=== PATIENT | female | born 1975 | race Caucasian/White ===

== ENCOUNTER 2016-12-31 12:04 | Emergency (ER) | payer OTHER ==
[~2016-12-31] VITALS: Ht 162.6 cm; Wt 122.2 kg
[~2016-12-31 12:04] MED LIST: ALBUTEROL SULF8.5 GM IH; ALLEGRA; ALLEGRA30 MG PO; AMPICILLIN TRI500 MG PO; ATIVAN1 MG PO; BENAZEPRIL HCL20 MG PO; BUTALB-APAP-CA1 EACH; CELEXA10 M1 PO; CELEXA20 MG PO; CHLORTHALIDONE25 MG PO; CIPRO500 MG PO; DILAUDID2 MG PO; DILAUDID4 MG PO; DIOVAN320 MG; ESCITALOPRAM OX10 MG; FEXOFENADINE HC30 MG PO; FLOMAX0.4 MG PO; GUANFACINE HCL1 MG PO; HYDROCHLOROTHIA25 MG; HYDROCHLOROTHIAZIDE; INTUNIV2 MG PO; ISOPTIN SR240 M1 PO; ISOPTIN SR240 MG PO; KEFLEX500 MG PO; LEVAQUIN500 MG PO; LORAZEPAM1 MG; LORAZEPAM1 MG PO; LORTAB 5-325 M1 EACH PO; METHYLPHENIDATE10 M1; NAPROSYN500 MG PO; NORCO 5/3251 TABLET PO; PERCOCET 5/31 TABLET PO; POTASSIUM CHLO10 ME4; POTASSIUM CHLORIDE; POTASSIUM CITR10 MEQ PO; TORADOL10 MG PO; TRAMADOL HCL50 MG PO; VITAMIN D1000 UNIT PO; ZOFRAN ODT4 MG PO; ZOFRAN ODT8 MG PO; ZOFRAN4 MG PO; ZOLOFT; ZYRTEC10 M3 PO
[2016-12-31 12:29] LABS: ADD MIUA? YES; BILIRUBIN NEGATIVE; BLOOD SMALL; COLOR STRAW ((YELLOW)); GLUCOSE (STRIP) NEGATIVE; KETONES NEGATIVE; LEUKOCYTES MODERATE; NITRITE NEGATIVE; PROTEIN (STRIP) 100; SPECIFIC GRAVITY 1.008 (1.000-1.030); UROBILINOGEN 0.2 MG/DL (0.2-1.0)
[2016-12-31 12:37] LABS: BACTERIA NONE SEEN /HPF; EPITHELIAL CELLS 1+ /HPF; MUCUS TRACE /LPF; RED BLOOD CELLS 0-5 /HPF (0-5); UCUL ADDED? NO; WHITE BLOOD CELLS 15-20 /HPF (0-5)
[2016-12-31 12:53] LABS: MCH 27.7 PG (29.0-34.0); MCHC 33.1 G/DL (30.0-36.0); MCV 83.9 FL (83-99); MEAN PLAT.VOLUME 9.9 uM^3 (9.5-12.4); PLATELET COUNT 321 K/uL (156-360); RBC DIS.WIDTH-CV 14.3 % (11.8-14.6); RED BLOOD COUNT 4.65 M/uL (3.80-5.20)
[2016-12-31 13:00] LABS: CHLORIDE 102 mEq/L (99-109); POTASSIUM 3.3 mEq/L (3.7-5.4); SODIUM 138 mEq/L (136-147)
[2016-12-31 13:02] LABS: GLUCOSE 96 mg/dL (70-99)
[2016-12-31 13:04] LABS: ANION GAP 12 MEQ/L (2-14)
[2016-12-31 13:06] LABS: GFR ESTIMATE (CALCULATED) > 59 mL/min/
[2016-12-31 13:07] LABS: UREA NITROGEN (BUN) 18 mg/dL (9-23)
[2016-12-31 13:17] LABS: QUANTITATIVE HCG < 4.0 MIU/ML
[2016-12-31 14:18] LABS: TOTAL BILIRUBIN 0.3 mg/dL (0.0-1.0)
[2016-12-31 14:19] LABS: ALKALINE PHOSPHATASE 81 IU/L (3-129)
[2016-12-31 14:21] LABS: DIRECT BILIRUBIN 0.1 mg/dL (0.0-0.3)
[2016-12-31 14:22] LABS: LIPASE 27 U/L (1.0-51.0)
[2016-12-31] MEDS ORDERED: ZOFRAN ODT4 MG PO (15:06)
[2016-12-31] MEDS ORDERED: BENTYL20 MG PO (15:06)
[2016-12-31] MEDS ORDERED: ULTRACET1 TABLET PO (15:07)
[2016-12-31] MEDS ORDERED: MOTRIN600 MG PO (15:07)
[2016-12-31 15:29] VITALS: BP 136/91
== END 2016-12-31 15:30 | disposition home or self-care (01) ==
LOC: EME 12:04
DX: K80.20 Calculus of gallbladder without cholecystitis without obstruction (principal); R11.2 Nausea with vomiting, unspecified; R19.7 Diarrhea, unspecified; Z87.442 Personal history of urinary calculi; J45.909 Unspecified asthma, uncomplicated; K21.9 Gastro-esophageal reflux disease without esophagitis
CPT/HCPCS: 74176; 76705; 80048; 80076; 81003; 83690; 84702; 85027; 87086; 93005; 99281; 99284; J3010

== ENCOUNTER 2017-02-18 07:59 | Day surgery (SDC) | payer OTHER ==
[~2017-02-18] VITALS: Ht 162.6 cm; Wt 123.0 kg
[~2017-02-18 07:59] MED LIST changes: +BENTYL20 MG PO; +MOTRIN600 MG PO; +ULTRACET1 TABLET PO
[2017-02-18] MEDS ORDERED: PROMETHAZINE HC25 M1 PO (10:28)
[2017-02-18 10:29] VITALS: BP 157/98
[2017-02-18] MEDS ORDERED: NORCO 5/3251 TABLET PO (13:09)
[2017-02-18 14:35] VITALS: BP 128/82
[2017-02-18 15:40] VITALS: BP 138/65
== END 2017-02-18 16:15 | disposition home or self-care (01) ==
LOC: SDC 07:59
PROC: 0FT44ZZ Resection of Gallbladder, Percutaneous Endoscopic Approach (ICD-10-PCS; principal; 2017-02-18)
DX: K80.10 Calculus of gallbladder with chronic cholecystitis without obstruction (principal); E66.9 Obesity, unspecified; Z68.42 Body mass index [BMI] 45.0-49.9, adult; D35.00 Benign neoplasm of unspecified adrenal gland; J30.9 Allergic rhinitis, unspecified; I10 Essential (primary) hypertension; E78.5 Hyperlipidemia, unspecified; R73.01 Impaired fasting glucose; Z80.49 Family history of malignant neoplasm of other genital organs; Z80.1 Family history of malignant neoplasm of trachea, bronchus and lung; Z82.49 Family history of ischemic heart disease and other diseases of the circulatory system; Z88.0 Allergy status to penicillin; Z88.5 Allergy status to narcotic agent; Z88.8 Allergy status to other drugs, medicaments and biological substances
CPT/HCPCS: 88304; J0131; J0330; J0690; J1100; J1170; J1885; J2405; J2710; J2765; J3010

== ENCOUNTER 2017-07-28 16:34 | Emergency (ER) | payer OTHER ==
[~2017-07-28] VITALS: Ht 162.6 cm; Wt 116.8 kg
[~2017-07-28 16:34] MED LIST changes: +PROMETHAZINE HC25 M1 PO
[2017-07-28 17:00] LABS: MCH 27.2 PG (29.0-34.0); MCHC 32.1 G/DL (30.0-36.0); MEAN PLAT.VOLUME 9.7 uM^3 (9.5-12.4); PLATELET COUNT 306 K/uL (156-360); RBC DIS.WIDTH-CV 14.3 % (11.8-14.6); RBC DIS.WIDTH-SD 43.8 % (39-53); RED BLOOD COUNT 4.59 M/uL (3.80-5.20)
[2017-07-28 17:11] LABS: CHLORIDE 104 mEq/L (99-109); POTASSIUM 3.3 mEq/L (3.7-5.4); SODIUM 139 mEq/L (136-147)
[2017-07-28 17:13] LABS: GLUCOSE 88 mg/dL (70-99)
[2017-07-28 17:15] LABS: ANION GAP 10 MEQ/L (2-14)
[2017-07-28 17:17] LABS: GFR ESTIMATE (CALCULATED) > 59 mL/min/
[2017-07-28 17:18] LABS: UREA NITROGEN (BUN) 15 mg/dL (9-23)
[2017-07-28 17:23] LABS: TROP-I INTERPRETATION NEGATIVE; TROPONIN-I < 0.01 ng/mL (0.0-0.30)
[2017-07-28] MEDS ORDERED: PREDNISONE20 MG PO (17:50)
[2017-07-28 19:00] VITALS: BP 165/98
== END 2017-07-28 19:01 | disposition home or self-care (01) ==
LOC: EME 16:34
DX: M54.12 Radiculopathy, cervical region (principal); I10 Essential (primary) hypertension; J45.909 Unspecified asthma, uncomplicated; K21.9 Gastro-esophageal reflux disease without esophagitis
CPT/HCPCS: 71020; 72040; 80048; 84443; 84484; 85027; 93005; 99281; 99284

== ENCOUNTER 2018-01-20 02:02 | Emergency (ER) | payer OTHER ==
[~2018-01-20] VITALS: Ht 154.9 cm; Wt 111.7 kg
[~2018-01-20 02:02] MED LIST changes: +INDOCIN50 MG PO; +PREDNISONE20 MG PO
[2018-01-20 02:04] VITALS: BP 129/95
[2018-01-20 03:01] LABS: HEMATOCRIT 39.4 % (36.0-46.0); HEMOGLOBIN 13.1 G/DL (11.9-15.5); MCHC 33.2 G/DL (30.0-36.0); MCV 84.2 FL (83-99); PLATELET COUNT 345 K/uL (156-360); RBC DIS.WIDTH-CV 14.2 % (11.8-14.6); RED BLOOD COUNT 4.68 M/uL (3.80-5.20); WHITE BLOOD COUNT 11.2 K/uL (4.1-10.2)
[2018-01-20 03:10] LABS: CHLORIDE 102 mEq/L (99-109); POTASSIUM 2.7 mEq/L (3.7-5.4); SODIUM 137 mEq/L (136-147)
[2018-01-20 03:12] LABS: GLUCOSE 167 mg/dL (70-99)
[2018-01-20 03:16] LABS: CREATININE 0.9 mg/dL (0.6-1.3); GFR ESTIMATE (CALCULATED) > 59 mL/min/
[2018-01-20 03:17] LABS: UREA NITROGEN (BUN) 21 mg/dL (9-23)
[2018-01-20 03:22] LABS: TROP-I INTERPRETATION NEGATIVE; TROPONIN-I < 0.01 ng/mL (0.0-0.30)
== END 2018-01-20 03:46 | disposition left against medical advice (07) ==
LOC: EME 02:02
DX: R06.02 Shortness of breath (principal); R42 Dizziness and giddiness; Z53.21 Procedure and treatment not carried out due to patient leaving prior to being seen by health care provider
CPT/HCPCS: 71046; 80048; 84484; 85027; 93005

== ENCOUNTER 2018-07-20 08:37 | Emergency (ER) | payer OTHER, BC ==
[~2018-07-20] VITALS: Ht 162.6 cm; Wt 110.8 kg
[2018-07-20] MEDS ORDERED: MOTRIN600 MG PO (08:49)
[2018-07-20 09:18] VITALS: BP 151/98
== END 2018-07-20 09:51 | disposition home or self-care (01) ==
LOC: EME 08:37
DX: S50.10XA Contusion of unspecified forearm, initial encounter (principal); M54.2 Cervicalgia; V49.40XA Driver injured in collision with unspecified motor vehicles in traffic accident, initial encounter
CPT/HCPCS: 99281; 99284